=== PATIENT | male | born 1960 | race Caucasian/White ===

== ENCOUNTER → 2017-03-31 | Day surgery (SDC) | payer OTHER ==
[~2017-03-31] MED LIST: BUPIVACAINE/EPINEPHRINE 0.5% PF 10 ML VIAL ONE; LACTATED RINGER'S 1000 ML INJ 1,000 ML ONE; LIDOCAINE 1%/EPINEPHrine 1:100,000 SOLN 20 ML VIAL ONE; MIDAZOLAM HCL 2 MG/2 ML VIAL ONE; PROPOFOL 500 MG/50 ML BTL IV ONE; ZITH250T PO
--- NOTE | 2017-03-31 12:27 | TN ---
cc: LINDSAY KENT M.D. DATE OF SURGERY: 03/31/2017 PREOPERATIVE DIAGNOSIS Large lipomatous-appearing structure left upper extremity just above the elbow joint, having neurologic symptoms. POSTOPERATIVE DIAGNOSIS Large lipomatous-appearing structure left upper extremity just above the elbow joint, having neurologic symptoms. PROCEDURE Excision of deep intramuscular lipomatous structure, 8 x 4 cm. ANESTHESIA TIVA. SURGEON Dr. Kent INDICATION The patient is a 57-year-old gentleman who has had an enlarging lipomatous structure in his left upper extremity. He is starting to have some pain and numbness in his arm, appears to be related to compression of nerves just at the elbow anterior portion. Plans were made for above. DETAILS OF PROCEDURE The patient was taken to the operating room and placed in the supine position. After TIVA anesthesia his left arm is prepped circumferentially from the axillary region down to the hand. A timeout is done. We previously marked the area. We make a linear incision overlying the apex of the mass after anesthetizing with Marcaine solution. We then make the incision down to the deep subcutaneous tissue just lateral to the upper extremity muscles. This lipomatous structure is able to be easily teased away from the intramuscular component. The well-encapsulated lipomatous structure is teased with blunt dissection down to the stalk that is near the antecubital fossa. This small vessel is cauterized with the electrocautery device. The specimen is then removed intact, 8 x 4 cm. The area is then irrigated. Hemostasis is assured. We then close the deep layer with 3-0 Vicryl and skin is re-approximated with 4-0 Vicryl. Steri-Strips are applied. Sterile bandage applied. The patient tolerated the procedure well and had no immediate post-op complications. Lindsay Kent MD JANGELITO/SOFIYA /11:42 AM /12:16 PM
== END | disposition home or self-care (01) ==
LOC: ESDC 09:38
PROVIDERS: ATTEND Surgery
DX: D17.22 Benign lipomatous neoplasm of skin and subcutaneous tissue of left arm (principal)
CPT/HCPCS: 01710; 24073; 88304; J2250; J3010; J7120; 88305